=== PATIENT | male | born 1965 | race Caucasian/White ===

== ENCOUNTER 2024-01-24 13:37 | Emergency (ER) | payer BC, SELFPAY ==
[2024-01-24 13:38] VITALS: BP 228/120
[2024-01-24 14:35] VITALS: BMI 30.8
[2024-01-24 14:39] VITALS: BP 219/131
--- NOTE | 2024-01-24 14:48 | ED.GENMED ---
History of Present Illness
General
Chief Complaint: Nose Bleed
Source: patient
Time Seen by Provider: 01/24/24 14:22
History of Present Illness
History of Present Illness:
58yoM with no significant past medical history presenting with his for evaluation after a nosebleed. Patient was at work today when blood started dripping from his nose. The nosebleed seemed to resolve but then recurred. He reports a large
amount of bleeding that was primarily coming from the left nare although blood was coming out bilaterally and dripping down the back of his throat. He called EMS who applied direct pressure. The nosebleed lasted about 2+ hours and resolved about an
hour ago. He is currently asymptomatic. He is hypertensive on arrival. He does not have a PCP and he last had his blood pressure checked about 5-7 years ago at an eye doctor appt. He was told that his blood pressure was high at that time but it
might be white coat syndrome. He is not on any medications. He denies any headache, visual changes, chest pain, shortness of breath.
Phy Exam
General Physical Exam
General Presentation: well appearing and no apparent distress
General age: appears stated age
General Skin: warm and dry
General Habitus: normal
General Mental: alert
General Hydration: appears well hydrated
ENT Exam
ENT Exam: normocephalic
Additional ENT: No active epistaxis noted.
Cardiovascular Exam
Cardiovascular Exam: regular rate/rhythm and no murmur
Pulmonary Exam
Pulmonary Exam: lungs clear, no respiratory distress, no rales, no crackles, no rhonchi and no wheezing
Neurological Exam
Neurological Exam: alert
Terrie Coma Scale
Eye Opening: Spontaneous
Verbal Response: Oriented
Motor Response: Obeys Commands
GCS Total Score: 15
Skin Exam
Skin Exam: normal color and warm/dry
Psychiatric Exam
Psychiatric Exam: normal mood/affect
Course
Orders/Labs/Results
Orders:
Orders
01/24/24 14:48
Electrocardiogram (*1) Urgent
Reason for Study: Other
Other Reason for Exam: hypertension
EKG- Treatment ONCE
Oxymetazoline HCl [Afrin Nasal [place]] See Dose Instructions NASAL ONCE ONE
01/24/24 15:20
Complete Blood Count/With Diff Urgent
Comprehensive Metabolic Panel Urgent
01/24/24 16:19
Amlodipine [Norvasc] 5 mg PO ONCE ONE
Abnormal Lab Results
01/24/24
15:20
WBC 11.8 H 10^3/uL
(4.8-10.8)
MPV 10.6 H fL
(7.4-10.4)
Absolute Neuts (auto) 9.8 H 10^3/uL
(1.4-6.5)
Neutrophils % 83.2 H %
(42.2-75.2)
Lymphocytes % 10.1 L %
(20.5-51.1)
BUN 24 H mg/dl
(9-20)
Glucose 104 H mg/dl
(70-99)
01/24/24 15:20
01/24/24 15:20
Vital Signs
Initial and Last Documented VS:
Initial Vital Signs
Temp Pulse Resp BP Pulse Ox
97.7 F 94 16 228/120 98
01/24/24 13:38 01/24/24 13:38 01/24/24 13:38 01/24/24 13:38 01/24/24 13:38
Last Documented Vital Signs
Temp Pulse Resp BP Pulse Ox
97.7 F 87 18 238/136 98
01/24/24 13:38 01/24/24 16:33 01/24/24 14:39 01/24/24 16:39 01/24/24 14:39
MDM/Problems Addressed
Differential Diagnosis Includes:
58yoM here with epistaxis. Lasted 2+ hours but now resolved. He is hypertensive to 228/120 on arrival. He is asymptomatic from this perspective and denies JOLLY, visual changes, chest pain. Does not regularly see a PCP. Differential diagnosis includes
but is not limited to: asymptomatic hypertension, hypertensive urgency, hypertensive emergency
Initial ED plan: Check CBC, CMP, and EKG. Afrin nasal spray ordered.
*EKG
Interpreted by ED Provider?: Yes
EKG Intrepretation Date: 01/24/24
Heart Rate: 83
Rate: normal
Rhythm: sinus
[place]: left axis deviation
Interval: normal interval
QRS Pattern: left vent hypertrophy
Ischemia: no ischemia
*Critical Care Note
Total Time (30-74mins, 75-104mins- exclusive of procedures): Not Applicable
Update Note
Update Note:
EKG shows NSR with evidence of LVH. Renal function is normal. Patient in ED for 3+ hours and no further bleeding noted. Blood pressure improved transiently to 189/122. BP rechecked at discharge which is back up to 219/131. Recommended that he stay
in the ED for additional 20-30 minutes for recheck. He is refusing further blood pressure checks stating that he is now upset and does not want to be in the ED any longer. He remains asymptomatic. He was given a 30 day prescription for amlodipine
5mg. Stressed the importance of close outpatient f/u with PCP. Strict ED return precautions discussed. He left in stable condition.
ED Attending Note
-
Portions of this chart may have been created with voice recognition software.� Occasional wrong word or��sound alike� substitutions may have occurred due to the inherent limitations of voice recognition software.
Discharge Plan
Departure
Patient Disposition: Home (Routine Discharge)
Date of Disposition: 01/24/24
Time of Disposition: 16:18
Patient with high blood pressure during this ER visit?: Yes
Discharge Problem:
Epistaxis, Hypertension
Instructions: Amlodipine, High Blood Pressure ED, Nosebleeds ED
Prescriptions:
New
amlodipine 5 mg tablet
5 mg PO DAILY Qty: 30 0RF
Referrals:
Zackery Downey MD [Active] -
UNKNOWN - PT DOES,NOT KNOW [Family Provider] -
Activity Restrictions/Additional Instructions:
Take amlodipine as prescribed for your blood pressure.
Use saline nasal spray daily and use humidifier at night to prevent nasal dryness. If bleed recurs, hold direct pressure for 20 minutes and return to the ER if bleeding persists.
Call on Monday to schedule a follow-up appointment with a primary care provider.
Interventions
Interventions:
*Risk Screen - Suicide Last Done: 01/24/24 13:38
*General Assessment Last Done: 01/24/24 13:38
*Neglect/Abuse Screening Last Done: 01/24/24 14:35
ED- Fall Risk Assessment Last Done: 01/24/24 14:35
*ED COVID-19 Vaccine History Last Done: 01/24/24 13:38
*Nursing Disposition Last Done: 01/24/24 16:45
ED-EENT Assessment Last Done: 01/24/24 14:35
Discharge Date and Time
Discharge Date/Time: 01/24/24 16:45
Print Language: TELUGU
[2024-01-24 15:21] VITALS: BP 189/122
[2024-01-24] MEDS: AFRIN NASAL SPRAY 30 SPRAYS NASAL (15:21)
[2024-01-24 15:31] LABS: % Basophils 0.4 % (0-2); % Eosinophils 0.7 % (0-6); % Immature Granulocytes 0.3 % (0-0.5); % Lymphocytes 10.1 % (20.5-51.1); % Monocytes 5.3 % (1.7-9.3); % Neutrophils 83.2 % (42.2-75.2); Absolute Basophils 0.1 10^3/uL (0-0.2); Absolute Eosinophils 0.1 10^3/uL (0-0.7); Absolute Lymphocytes 1.2 10^3/uL (1.2-3.4); Absolute Monocytes 0.6 10^3/uL (0.1-0.6); Absolute Neutrophils 9.8 10^3/uL (1.4-6.5); Hematocrit 42.6 % (39.0-52.0); Hemoglobin 14.8 g/dL (13.0-18.0); Mean Corp Hgb Conc. 34.7 g/dL (33.0-37.0); Mean Corpuscular Hgb 30.6 pg (27.0-31.0); Mean Platelet Volume 10.6 fL (7.4-10.4); Nucleated Red Blood Cells % 0 % (-); Platelet Count 182 10^3/uL (130-400); Red Blood Cell Count 4.84 10^6/uL (4.70-6.10); Red Cell Dist. Width 12.8 % (11.5-14.5); White Blood Cell Count 11.8 10^3/uL (4.8-10.8)
[2024-01-24 15:45] LABS: ALT (SGPT) 30 U/L (0-50); AST (SGOT) 29 U/L (17-59); Alkaline Phosphatase 92 U/L (38-126); Blood Urea Nitrogen 24 mg/dl (9-20); Carbon Dioxide 28 mmol/L (22-30); Chloride 102 mmol/L (98-107); Estimated Creatinine Clearance 95 ml/min; Glucose 104 mg/dl (70-99); Potassium 4.4 mmol/L (3.5-5.1); Sodium 141 mmol/L (135-145); Total Bilirubin 0.4 mg/dl (0.2-1.3); Total Protein 7.9 g/dl (6.3-8.2); eGFR > 60.00
[2024-01-24] MEDS: NORVASC 5 MG PO (16:33)
[2024-01-24 16:39] VITALS: BP 238/136
--- NOTE | 2024-01-24 16:43 | EDRN ---
pt pressure still significantly elevated prior to discharge. last BP 238/136. provider JOON Mon aware and in the room discussing situation with patient and his spouse. Yaa suggested staying another 20-30 mins for another pressure check. Pt does
not want to stay and understands the risks of going home with high BP. pt was given one dose of Amlodipine 5mg PO prior to departure. instructed pt to follow up with PCP this week for a re-check. pt understands all instructions and return
precautions. all questions answered.
== END 2024-01-24 16:45 | disposition home or self-care (01) ==
LOC: EMR 13:37
PROVIDERS: Physician Assistant; EMERGENCY PHYSICIAN Emergency Medicine
DX: R04.0 Epistaxis (principal); I10 Essential (primary) hypertension; Z91.018 Allergy to other foods
CPT/HCPCS: 99283; 80053; 85025; 93005